=== PATIENT | female | born 2000 | race Caucasian/White ===

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

== ENCOUNTER 2020-02-10 22:42 | Emergency (ER) | payer OTHER ==
[~2020-02-10] VITALS: Ht 162.6 cm; Wt 55.3 kg
[2020-02-10 23:11] LABS: BASOPHILS ABSOLUTE AUTO 0.03 K/mm3 (0.00-0.23); BASOPHILS PERCENT AUTO 0 % (0-2); EOSINOPHILS PERCENT AUTO 2 % (0-6); Hematocrit 38.1 % (33.0-51.0); Hemoglobin 12.5 g/dL (11.5-16.0); IMMATURE GRAN ABSOLUTE AUTO 0.01 K/mm3 (0.00-0.10); IMMATURE GRAN PERCENT AUTO 0 % (0-1); LYMPHOCYTES ABSOLUTE AUTO 3.35 K/mm3 (0.84-5.20); LYMPHOCYTES PERCENT AUTO 39 % (21-46); MONOCYTES ABSOLUTE AUTO 0.55 K/mm3 (0.16-1.47); MONOCYTES PERCENT AUTO 7 % (4-13); Mean Corpuscular HGB 30.6 pg (26.0-34.0); Mean Corpuscular HGB Conc 32.8 g/dL (31.5-36.5); Mean Corpuscular Volume 93 fL (80-100); Mean Platelet Volume 8.8 fL (9.1-12.4); NEUTROPHILS ABSOLUTE AUTO 4.37 K/mm3 (1.96-9.15); NEUTROPHILS PERCENT AUTO 51 % (41-73); Platelet Count 248 K/mm3 (150-400); RDW Coefficient Variation 12.2 % (11.7-14.2); RDW Standard Deviation 42.2 fL (35.1-46.3); Red Blood Cell Count 4.08 M/mm3 (3.80-5.20); White Blood Cell Count 8.51 K/mm3 (4.00-11.30)
[2020-02-10 23:32] LABS: Alanine Aminotransfer (ALT/SGP 19 U/L (12-78); Albumin, Blood 3.9 g/dL (3.4-5.0); Albumin/Globulin Ratio 1.2 (0.8-1.8); Alk Phos 57 U/L (45-116); Anion Gap 4 mmol/L (6-16); Aspartate Aminotrans (AST/SGOT 13 U/L (12-37); Bilirubin, Total 0.3 mg/dL (0.1-1.0); Blood Urea Nitrogen 11 mg/dL (8-21); Bun/Creatinine Ratio 15.3 (12.0-20.0); CO2, Blood 28 mmol/L (21-32); Calcium, Blood 8.9 mg/dL (8.5-10.1); Chloride, Blood 109 mmol/L (98-108); Creatinine, Blood 0.72 mg/dL (0.40-1.00); Globulin, Blood 3.3 g/dL (2.2-4.0); Glomerular Filtration Rate >60 (60-); Glucose, Blood 88 mg/dL (70-99); Sodium, Blood 141 mmol/L (136-145); Total Protein, Blood 7.2 g/dL (6.4-8.2)
[2020-02-11 00:32] LABS: Source, Urine Clean Catch
[2020-02-11 00:34] LABS: Bilirubin, Urine Neg (Neg); Blood, Urine 5+ (Neg); Glucose Qualitative, Urine Neg (Neg); Ketones, Urine Neg (Neg); Leukocyte Esterase, Urine Neg (Neg); Nitrite, Urine Neg (Neg); Protein, Urine 2+ (Neg); Specific Gravity, Urine 1.025 (1.003-1.022); Urobilinogen, Urine NORM (Normal)
[2020-02-11 00:35] LABS: Appearance, Urine Clear (Clear); Color, Urine Yellow (P-Yellow)
[2020-02-11 00:40] LABS: Bacteria Many /hpf; Squamous Epithelial Cells Few /hpf (Few)
[2020-02-11 00:41] LABS: Mucus Light (0-Heavy)
== END 2020-02-11 01:34 | disposition home or self-care (01) ==
LOC: ER 22:42
PROVIDERS: Emergency Medicine
DX: R10.30 Lower abdominal pain, unspecified (principal); M54.5 Low back pain; R11.0 Nausea; R39.15 Urgency of urination; F32.9 Major depressive disorder, single episode, unspecified; F17.290 Nicotine dependence, other tobacco product, uncomplicated; Z79.3 Long term (current) use of hormonal contraceptives; Z88.0 Allergy status to penicillin; Z79.899 Other long term (current) drug therapy
CPT/HCPCS: 36415; 80053; 81001; 81025; 85025; 87086; 96374; 96375; 99284; J1885; J2405

== ENCOUNTER → 2020-03-14 | Outpatient (CLI) | payer OTHER ==
[~2020-03-14] MED LIST changes: +OLAN10A MM
== END | disposition home or self-care (01) ==
LOC: LAB SHORT 12:21 → LAB EV 12:21
DX: J02.9 Acute pharyngitis, unspecified (principal)
CPT/HCPCS: 87081

== ENCOUNTER 2020-05-20 11:54 | Emergency (ER) | payer OTHER ==
[~2020-05-20] VITALS: Ht 160 cm; Wt 59.0 kg
[~2020-05-20 11:54] MED LIST changes: -OLAN10A MM
[2020-05-20] MEDS ORDERED: OLAN10A MM ×2 (13:37→17:51)
== END 2020-05-20 14:34 | disposition home or self-care (01) ==
LOC: ER 11:54
DX: G47.00 Insomnia, unspecified (principal); F17.290 Nicotine dependence, other tobacco product, uncomplicated; Z88.0 Allergy status to penicillin; Z79.899 Other long term (current) drug therapy
CPT/HCPCS: 99283

== ENCOUNTER → 2021-01-14 | Outpatient (CLI) | payer OTHER ==
[~2021-01-14] MED LIST changes: +OLAN10A MM
[2021-01-14 09:45] LABS: BASOPHILS ABSOLUTE AUTO 0.03 K/mm3 (0.00-0.23); BASOPHILS PERCENT AUTO 0 % (0-2); EOSINOPHILS ABSOLUTE AUTO 0.07 K/mm3 (0.00-0.68); EOSINOPHILS PERCENT AUTO 1 % (0-6); Hemoglobin 13.4 g/dL (11.5-16.0); IMMATURE GRAN ABSOLUTE AUTO 0.02 K/mm3 (0.00-0.10); IMMATURE GRAN PERCENT AUTO 0 % (0-1); LYMPHOCYTES ABSOLUTE AUTO 1.95 K/mm3 (0.84-5.20); LYMPHOCYTES PERCENT AUTO 24 % (21-46); MONOCYTES ABSOLUTE AUTO 0.36 K/mm3 (0.16-1.47); MONOCYTES PERCENT AUTO 5 % (4-13); Mean Corpuscular HGB 31.7 pg (26.0-34.0); Mean Corpuscular HGB Conc 34.4 g/dL (31.5-36.5); Mean Corpuscular Volume 92 fL (80-100); NEUTROPHILS ABSOLUTE AUTO 5.65 K/mm3 (1.96-9.15); NEUTROPHILS PERCENT AUTO 70 % (41-73); Platelet Count 331 K/mm3 (150-400); RDW Coefficient Variation 12.8 % (11.7-14.2); RDW Standard Deviation 42.9 fL (35.1-46.3); Red Blood Cell Count 4.23 M/mm3 (3.80-5.20); White Blood Cell Count 8.08 K/mm3 (4.00-11.30)
== END ==
LOC: LAB SHORT 09:37 → LAB 09:37
PROVIDERS: Physician Assistant
DX: N94.6 Dysmenorrhea, unspecified (principal); Z88.1 Allergy status to other antibiotic agents
CPT/HCPCS: 84443; 85025

== ENCOUNTER → 2021-07-08 | Outpatient (CLI) | payer OTHER ==
[2021-07-08 13:19] LABS: Source, Urine Clean Catch
[2021-07-08 15:05] LABS: BASOPHILS ABSOLUTE AUTO 0.03 K/mm3 (0.00-0.23); BASOPHILS PERCENT AUTO 1 % (0-2); EOSINOPHILS ABSOLUTE AUTO 0.15 K/mm3 (0.00-0.68); EOSINOPHILS PERCENT AUTO 3 % (0-6); Hematocrit 40.8 % (33.0-51.0); Hemoglobin 13.8 g/dL (11.5-16.0); IMMATURE GRAN PERCENT AUTO 0 % (0-1); LYMPHOCYTES ABSOLUTE AUTO 2.27 K/mm3 (0.84-5.20); LYMPHOCYTES PERCENT AUTO 37 % (21-46); MONOCYTES ABSOLUTE AUTO 0.49 K/mm3 (0.16-1.47); MONOCYTES PERCENT AUTO 8 % (4-13); Mean Corpuscular HGB 31.7 pg (26.0-34.0); Mean Corpuscular HGB Conc 33.8 g/dL (31.5-36.5); Mean Corpuscular Volume 94 fL (80-100); Mean Platelet Volume 9.7 fL (9.1-12.4); NEUTROPHILS ABSOLUTE AUTO 3.16 K/mm3 (1.96-9.15); NEUTROPHILS PERCENT AUTO 52 % (41-73); Platelet Count 260 K/mm3 (150-400); RDW Coefficient Variation 12.2 % (11.7-14.2); RDW Standard Deviation 42.4 fL (35.1-46.3); Red Blood Cell Count 4.36 M/mm3 (3.80-5.20)
[2021-07-08 16:08] LABS: Appearance, Urine Clear (Clear); Bilirubin, Urine Neg (Neg); Blood, Urine Neg (Neg); Color, Urine Yellow (P-Yellow); Glucose Qualitative, Urine Neg (Neg); Ketones, Urine Neg (Neg); Leukocyte Esterase, Urine Neg (Neg); Nitrite, Urine Neg (Neg); Protein, Urine Neg (Neg); Urobilinogen, Urine NORM (Normal)
[2021-07-09 09:10] LABS: HBSAG SCREEN Negative (Negative); HIV AB/P24 AG SCREEN Non Reactive (Non Reactive)
== END | disposition home or self-care (01) ==
LOC: LAB 13:15 → LAB SHORT 13:15
PROVIDERS: Family Medicine
DX: Z34.91 Encounter for supervision of normal pregnancy, unspecified, first trimester (principal)
CPT/HCPCS: 80055; 81003; 84443; 87086; 87389

== ENCOUNTER 2021-07-25 11:19 | Emergency (ER) | payer OTHER ==
[~2021-07-25] VITALS: Ht 160 cm; Wt 54.9 kg
[2021-07-25 12:27] LABS: Source, Urine Clean Catch
[2021-07-25] MEDS ORDERED: Ondansetron Odt8 MG MM (12:33)
[2021-07-25 13:03] LABS: Beta HCG, Quantitative, Serum 29440 mIU/mL (0-3)
[2021-07-25 13:04] LABS: Anion Gap 7 mmol/L (6-16); Blood Urea Nitrogen 7 mg/dL (8-24); CO2, Blood 22 mmol/L (21-32); Calcium, Blood 9.3 mg/dL (8.5-10.1); Chloride, Blood 109 mmol/L (98-108); Creatinine, Blood 0.44 mg/dL (0.40-1.00); Glomerular Filtration Rate >60 (60-); Glucose, Blood 85 mg/dL (70-99); Potassium, Blood 3.8 mmol/L (3.5-5.5); Sodium, Blood 138 mmol/L (136-145)
[2021-07-25 13:08] LABS: Appearance, Urine Clear (Clear); Bilirubin, Urine Neg (Neg); Blood, Urine Neg (Neg); Color, Urine Yellow (P-Yellow); Glucose Qualitative, Urine Neg (Neg); Ketones, Urine 3+ (Neg); Leukocyte Esterase, Urine Neg (Neg); Nitrite, Urine Neg (Neg); Protein, Urine Neg (Neg); Specific Gravity, Urine 1.015 (1.003-1.022); Urobilinogen, Urine NORM (Normal); pH, Urine 6.5 (5.0-8.0)
== END 2021-07-25 13:37 | disposition home or self-care (01) ==
LOC: ER 11:19
PROVIDERS: Physician Assistant
DX: O21.9 Vomiting of pregnancy, unspecified (principal); Z3A.08 8 weeks gestation of pregnancy
CPT/HCPCS: 36415; 80048; 81003; 84702; 99283

== ENCOUNTER → 2021-08-08 | Outpatient (CLI) | payer OTHER ==
[~2021-08-08] MED LIST changes: +Ondansetron Odt8 MG MM
[2021-08-11 03:09] LABS: CHLAMYDIA TRACHOMATIS, NAA Negative (Negative)
== END | disposition home or self-care (01) ==
LOC: LAB SHORT 16:10
PROVIDERS: Family Medicine
DX: Z34.91 Encounter for supervision of normal pregnancy, unspecified, first trimester (principal)
CPT/HCPCS: 87491; 87591

== ENCOUNTER → 2021-12-16 | Outpatient (CLI) | payer OTHER ==
[2021-12-16 13:56] LABS: BASOPHILS ABSOLUTE AUTO 0.02 K/mm3 (0.00-0.23); BASOPHILS PERCENT AUTO 0 % (0-2); EOSINOPHILS ABSOLUTE AUTO 0.07 K/mm3 (0.00-0.68); EOSINOPHILS PERCENT AUTO 1 % (0-6); Hematocrit 33.4 % (33.0-51.0); Hemoglobin 11.3 g/dL (11.5-16.0); IMMATURE GRAN ABSOLUTE AUTO 0.07 K/mm3 (0.00-0.10); IMMATURE GRAN PERCENT AUTO 1 % (0-1); LYMPHOCYTES ABSOLUTE AUTO 2.33 K/mm3 (0.84-5.20); LYMPHOCYTES PERCENT AUTO 21 % (21-46); MONOCYTES ABSOLUTE AUTO 0.57 K/mm3 (0.16-1.47); MONOCYTES PERCENT AUTO 5 % (4-13); Mean Corpuscular HGB 32.3 pg (26.0-34.0); Mean Corpuscular HGB Conc 33.8 g/dL (31.5-36.5); Mean Corpuscular Volume 95 fL (80-100); Mean Platelet Volume 9.6 fL (9.1-12.4); NEUTROPHILS ABSOLUTE AUTO 8.15 K/mm3 (1.96-9.15); NEUTROPHILS PERCENT AUTO 73 % (41-73); Platelet Count 268 K/mm3 (150-400); RDW Coefficient Variation 12.3 % (11.7-14.2); RDW Standard Deviation 42.1 fL (35.1-46.3); White Blood Cell Count 11.21 K/mm3 (4.00-11.30)
== END ==
LOC: LAB SHORT 12:35
PROVIDERS: Family Medicine
DX: Z34.91 Encounter for supervision of normal pregnancy, unspecified, first trimester (principal); Z3A.00 Weeks of gestation of pregnancy not specified
CPT/HCPCS: 82950; 85025; 86850

== ENCOUNTER → 2022-02-13 | Outpatient (CLI) | payer OTHER | END | disposition home or self-care (01) | LOC: LAB SHORT 18:54 | DX: Z34.91 Encounter for supervision of normal pregnancy, unspecified, first trimester (principal) | CPT/HCPCS: 87081; 87150 ==

== ENCOUNTER 2022-03-07 16:25 | Inpatient (IN) | payer OTHER ==
[~2022-03-07] VITALS: Ht 157.5 cm; Wt 71.4 kg
[2022-03-07 17:23] LABS: BASOPHILS ABSOLUTE AUTO 0.04 K/mm3 (0.00-0.23); BASOPHILS PERCENT AUTO 0 % (0-2); EOSINOPHILS ABSOLUTE AUTO 0.06 K/mm3 (0.00-0.68); EOSINOPHILS PERCENT AUTO 0 % (0-6); Hematocrit 34.2 % (33.0-51.0); Hemoglobin 11.8 g/dL (11.5-16.0); IMMATURE GRAN ABSOLUTE AUTO 0.06 K/mm3 (0.00-0.10); IMMATURE GRAN PERCENT AUTO 0 % (0-1); LYMPHOCYTES ABSOLUTE AUTO 2.11 K/mm3 (0.84-5.20); LYMPHOCYTES PERCENT AUTO 15 % (21-46); MONOCYTES ABSOLUTE AUTO 0.91 K/mm3 (0.16-1.47); MONOCYTES PERCENT AUTO 6 % (4-13); Mean Corpuscular HGB 31.1 pg (26.0-34.0); Mean Corpuscular HGB Conc 34.5 g/dL (31.5-36.5); Mean Corpuscular Volume 90 fL (80-100); Mean Platelet Volume 10.1 fL (9.1-12.4); NEUTROPHILS ABSOLUTE AUTO 11.32 K/mm3 (1.96-9.15); NEUTROPHILS PERCENT AUTO 78 % (41-73); Platelet Count 386 K/mm3 (150-400); RDW Standard Deviation 42.4 fL (35.1-46.3)
[2022-03-08 05:27] LABS: BASOPHILS ABSOLUTE AUTO 0.03 K/mm3 (0.00-0.23); BASOPHILS PERCENT AUTO 0 % (0-2); EOSINOPHILS PERCENT AUTO 0 % (0-6); Hematocrit 31.5 % (33.0-51.0); Hemoglobin 10.6 g/dL (11.5-16.0); IMMATURE GRAN ABSOLUTE AUTO 0.11 K/mm3 (0.00-0.10); IMMATURE GRAN PERCENT AUTO 1 % (0-1); LYMPHOCYTES ABSOLUTE AUTO 1.44 K/mm3 (0.84-5.20); LYMPHOCYTES PERCENT AUTO 6 % (21-46); MONOCYTES ABSOLUTE AUTO 1.45 K/mm3 (0.16-1.47); MONOCYTES PERCENT AUTO 6 % (4-13); Mean Corpuscular HGB 30.6 pg (26.0-34.0); Mean Corpuscular HGB Conc 33.7 g/dL (31.5-36.5); Mean Corpuscular Volume 91 fL (80-100); Mean Platelet Volume 9.9 fL (9.1-12.4); NEUTROPHILS PERCENT AUTO 87 % (41-73); Platelet Count 370 K/mm3 (150-400); RDW Coefficient Variation 12.9 % (11.7-14.2); RDW Standard Deviation 42.4 fL (35.1-46.3); Red Blood Cell Count 3.46 M/mm3 (3.80-5.20); White Blood Cell Count 22.73 K/mm3 (4.00-11.30)
[2022-03-09] MEDS ORDERED: PRENATAL TABLE1 EAC2 PO (08:44)
[2022-03-09] MEDS ORDERED: IBUP800 PO (08:44)
--- NOTE | 2022-03-09 09:32 | NUR ---
DISCHARGE DISCHARGE HOME STABLE WITH BABY. CARING FOR SELF AND BABY INDEPENDANTLY. VERBALIZES UNDERSTANDING OF DC INSTRUCTIONS AND FOLLOW UP APPOINTMENTS. NO QUESTIONS OR CONCERNS. VSS. LOCHIA SCANT.
== END 2022-03-09 09:50 | disposition home or self-care (01) | DRG 807 ==
LOC: OBS 16:25 → BC 16:26 → OBS 16:58 → BC 17:02
PROVIDERS: Family Medicine; ADMIT Family Medicine
PROC: 10E0XZZ Delivery of Products of Conception, External Approach (ICD-10-PCS; principal; 2022-03-07)
PROC: 0KQM0ZZ Repair Perineum Muscle, Open Approach (ICD-10-PCS; 2022-03-07)
PROC: 10907ZC Drainage of Amniotic Fluid, Therapeutic from Products of Conception, Via Natural or Artificial Opening (ICD-10-PCS; 2022-03-07)
DX: O99.72 Diseases of the skin and subcutaneous tissue complicating childbirth (principal); Z37.0 Single live birth; L29.8 Other pruritus; O99.324 Drug use complicating childbirth; O70.1 Second degree perineal laceration during delivery; F12.10 Cannabis abuse, uncomplicated; O43.123 Velamentous insertion of umbilical cord, third trimester; Z3A.39 39 weeks gestation of pregnancy; Z98.890 Other specified postprocedural states; Z88.0 Allergy status to penicillin; Z79.899 Other long term (current) drug therapy
CPT/HCPCS: 36415; 59025; 81003; 85025; 86850; 86870; 86900; 86901; A9270; J1885; J2405; J2590; J7120

== ENCOUNTER 2022-04-14 18:19 | Emergency (ER) | payer OTHER ==
[~2022-04-14] VITALS: Ht 160 cm; Wt 65.8 kg
[2022-04-14] MEDS ORDERED: ONDA4ODT MM (22:07)
== END 2022-04-14 22:05 | disposition home or self-care (01) ==
LOC: ER 18:19
DX: K85.90 Acute pancreatitis without necrosis or infection, unspecified (principal); Z88.0 Allergy status to penicillin; Z79.899 Other long term (current) drug therapy
CPT/HCPCS: 74177; Q9967

== ENCOUNTER → 2022-04-14 | Outpatient (CLI) | payer OTHER ==
[~2022-04-14] MED LIST changes: +IBUP800 PO
[2022-04-14 16:23] LABS: BASOPHILS ABSOLUTE AUTO 0.02 K/mm3 (0.00-0.23); BASOPHILS PERCENT AUTO 0 % (0-2); EOSINOPHILS ABSOLUTE AUTO 0.01 K/mm3 (0.00-0.68); EOSINOPHILS PERCENT AUTO 0 % (0-6); Hematocrit 39.9 % (33.0-51.0); Hemoglobin 13.7 g/dL (11.5-16.0); IMMATURE GRAN ABSOLUTE AUTO 0.03 K/mm3 (0.00-0.10); IMMATURE GRAN PERCENT AUTO 0 % (0-1); LYMPHOCYTES ABSOLUTE AUTO 1.06 K/mm3 (0.84-5.20); LYMPHOCYTES PERCENT AUTO 9 % (21-46); MONOCYTES ABSOLUTE AUTO 0.62 K/mm3 (0.16-1.47); MONOCYTES PERCENT AUTO 5 % (4-13); Mean Corpuscular HGB 30.6 pg (26.0-34.0); Mean Corpuscular HGB Conc 34.3 g/dL (31.5-36.5); Mean Corpuscular Volume 89 fL (80-100); Mean Platelet Volume 9.2 fL (9.1-12.4); NEUTROPHILS ABSOLUTE AUTO 10.73 K/mm3 (1.96-9.15); NEUTROPHILS PERCENT AUTO 86 % (41-73); Platelet Count 312 K/mm3 (150-400); RDW Coefficient Variation 13.4 % (11.7-14.2); RDW Standard Deviation 43.8 fL (35.1-46.3); Red Blood Cell Count 4.47 M/mm3 (3.80-5.20); White Blood Cell Count 12.47 K/mm3 (4.00-11.30)
[2022-04-14 16:32] LABS: Albumin, Blood 4.1 g/dL (3.4-5.0); Albumin/Globulin Ratio 1.1 (0.8-1.8); Bilirubin, Total 0.4 mg/dL (0.1-1.0); Bun/Creatinine Ratio 21.9 (12.0-20.0); Creatinine, Blood 0.64 mg/dL (0.40-1.00); Globulin, Blood 3.9 g/dL (2.2-4.0); Potassium, Blood 3.8 mmol/L (3.5-5.5)
== END | disposition home or self-care (01) ==
LOC: LAB SHORT 16:19 → LAB 16:19
PROVIDERS: Physician Assistant Surgical
DX: R11.2 Nausea with vomiting, unspecified (principal)
CPT/HCPCS: 80053; 83690; 85025

== ENCOUNTER 2022-08-01 15:51 | Inpatient (IN) | payer OTHER ==
[~2022-08-01] VITALS: Ht 160 cm; Wt 57.6 kg
[2022-08-01 16:37] LABS: BASOPHILS ABSOLUTE AUTO 0.03 K/mm3 (0.00-0.23); BASOPHILS PERCENT AUTO 0 % (0-2); EOSINOPHILS ABSOLUTE AUTO 0.08 K/mm3 (0.00-0.68); EOSINOPHILS PERCENT AUTO 1 % (0-6); Hematocrit 40.2 % (33.0-51.0); Hemoglobin 13.4 g/dL (11.5-16.0); IMMATURE GRAN ABSOLUTE AUTO 0.02 K/mm3 (0.00-0.10); IMMATURE GRAN PERCENT AUTO 0 % (0-1); LYMPHOCYTES ABSOLUTE AUTO 1.87 K/mm3 (0.84-5.20); LYMPHOCYTES PERCENT AUTO 19 % (21-46); MONOCYTES ABSOLUTE AUTO 0.58 K/mm3 (0.16-1.47); MONOCYTES PERCENT AUTO 6 % (4-13); Mean Corpuscular HGB Conc 33.3 g/dL (31.5-36.5); Mean Corpuscular Volume 90 fL (80-100); Mean Platelet Volume 9.1 fL (9.1-12.4); NEUTROPHILS ABSOLUTE AUTO 7.32 K/mm3 (1.96-9.15); NEUTROPHILS PERCENT AUTO 74 % (41-73); Platelet Count 318 K/mm3 (150-400); RDW Coefficient Variation 13.4 % (11.7-14.2); RDW Standard Deviation 44.2 fL (35.1-46.3); Red Blood Cell Count 4.47 M/mm3 (3.80-5.20)
[2022-08-01 17:08] LABS: Albumin, Blood 3.8 g/dL (3.4-5.0); Albumin/Globulin Ratio 1.1 (0.8-1.8); Bilirubin, Total 0.5 mg/dL (0.1-1.0); Bun/Creatinine Ratio 28.2 (12.0-20.0); Calcium, Blood 9.3 mg/dL (8.5-10.1); Creatinine, Blood 0.67 mg/dL (0.40-1.00); Globulin, Blood 3.4 g/dL (2.2-4.0); Potassium, Blood 4.1 mmol/L (3.5-5.5); Total Protein, Blood 7.2 g/dL (6.4-8.2)
[2022-08-01 19:36] LABS: CHOL/HDL RATIO 3.6; Cholesterol 153 mg/dL (50-200); HDL Cholesterol 43 mg/dL (>39); LDL/HDL RATIO 2.3; Low Density Lipoprotein Chol 100 mg/dL (0-110); Triglycerides 52 mg/dL (30-140); Very Low Density Lipoprot Chol 10 mg/dL (6-28)
--- NOTE | 2022-08-01 23:57 | NUR ---
ARRIVAL PT ARRIVED TO FLOOR IN NO DISTRESS, DESCRIBED EPIGASTRIC PAIN "DISAPPEARED" AT THIS TIME. PT REPORTS SHE WILL ASK FOR PAIN MEDS IF SHE NEEDS THEM. REPORTS NAUSEA WITH PO INTAKE, NO NAUSEA AT THIS TIME, PT HAS NOT BEEN ABLE TO KEEP FOOD DOWN SINCE SUNDAY. PT TO BE NPO AT 0000, PLAN FOR VICTORINA IN AM. BED IN LOW, AT BEDSIDE, CALL LIGHT IN REACH
[2022-08-02] VITALS (16 sets, daily range): BP systolic 100–142; BP diastolic 60–91
--- NOTE | 2022-08-02 00:07 | NUR ---
HR PT NOTED TO HAVE A LOW HR, COUNTED AT 44 RADIALLY. PT REPORTS THIS IS BASELINE FOR HER. PT REMAINS AYMPTOMATIC AND EDUCATED ON CALLING IF SHE STARTS FEELING LIGHTHEADED, FLUSH, DIZZY, OR WEAK. REMAINS AT BEDSIDE, CALL IGHT IN REACH
--- NOTE | 2022-08-02 05:09 | NUR ---
SHIFT SUMMARY VSS. SEE PREVIOUS NOTE FOR UPDATE ON HR. PT HAS BEEN NPO SINCE ARRIVING TO THE FLOOR, IV FLUIDS INFUSING. ONE UNMEASUREED VOID NOTED, PT REPORTS SHE HAS NOT BEEN ABLE TO KEEP FOOD OR FLUID DOWN SINCE SUNDAY. REPORTS SHE FEELS "DEHYDRATED". PT HAS NOT REQUIRED ANY PAIN OR NAUSEA MEDICATION. NO N/V NOTED. SURGICAL WIPEDOWN COMPLETE. NO ACUTE EVENTS NOTEDSINCE ARRIVAL. PLAN FOR PT TO [facility] TODAY. THE PATIENT IS CURRENTLY RESTING, IN NO DISTRESS, CALL LIGHT IN REACH. AND AT BEDSIDE
[2022-08-02 08:46] LABS: BASOPHILS ABSOLUTE AUTO 0.04 K/mm3 (0.00-0.23); BASOPHILS PERCENT AUTO 1 % (0-2); EOSINOPHILS ABSOLUTE AUTO 0.22 K/mm3 (0.00-0.68); EOSINOPHILS PERCENT AUTO 4 % (0-6); Hematocrit 37.3 % (33.0-51.0); Hemoglobin 12.5 g/dL (11.5-16.0); IMMATURE GRAN ABSOLUTE AUTO 0.02 K/mm3 (0.00-0.10); IMMATURE GRAN PERCENT AUTO 0 % (0-1); LYMPHOCYTES ABSOLUTE AUTO 1.98 K/mm3 (0.84-5.20); LYMPHOCYTES PERCENT AUTO 36 % (21-46); MONOCYTES ABSOLUTE AUTO 0.28 K/mm3 (0.16-1.47); MONOCYTES PERCENT AUTO 5 % (4-13); Mean Corpuscular HGB 30.3 pg (26.0-34.0); Mean Corpuscular HGB Conc 33.5 g/dL (31.5-36.5); Mean Corpuscular Volume 91 fL (80-100); Mean Platelet Volume 9.2 fL (9.1-12.4); NEUTROPHILS ABSOLUTE AUTO 3.01 K/mm3 (1.96-9.15); NEUTROPHILS PERCENT AUTO 54 % (41-73); Platelet Count 276 K/mm3 (150-400); RDW Coefficient Variation 13.4 % (11.7-14.2); RDW Standard Deviation 44.7 fL (35.1-46.3); Red Blood Cell Count 4.12 M/mm3 (3.80-5.20); White Blood Cell Count 5.55 K/mm3 (4.00-11.30)
[2022-08-02 08:59] LABS: Albumin, Blood 3.5 g/dL (3.4-5.0); Bilirubin, Total 0.5 mg/dL (0.1-1.0); Bun/Creatinine Ratio 24.6 (12.0-20.0); Calcium, Blood 9.1 mg/dL (8.5-10.1); Creatinine, Blood 0.57 mg/dL (0.40-1.00); Globulin, Blood 3.4 g/dL (2.2-4.0); Total Protein, Blood 6.9 g/dL (6.4-8.2)
--- NOTE | 2022-08-02 15:29 | NUR ---
PATIENT IS GOING BACK TO THE OR.
--- NOTE | 2022-08-02 15:45 | NUR ---
History, Chart, Medications and Allergies reviewed before start of procedure. Lungs clear T/O to Auscultation. Patient confirms NPO status and agrees with scheduled surgery. Pre-Op teaching done. Pt verbalizes understanding. Pt is post and breasting feeding her daughter. Denies pain and nausea at this times.
--- NOTE | 2022-08-02 16:06 | NUR ---
REPORT TO MARITZA BLOOM TO ASSUME CARE OF PATIENT
[2022-08-02] MEDS ORDERED: Norco 5-325 Ta1 EACH PO (18:50)
--- NOTE | 2022-08-02 19:15 | NUR ---
PATIENT CAME BACK AT 1900 FROM PACU TODAY. POD 0 LAP VICTORINA PATIENT IS DROWSY BUT IS EASILY WOKEN UP WITH VERBAL STIMULI. PATIENT DENIES PAIN AT THIS TIME BUT REPORTS BEING NAUSEOUS. AWAITING FOR DR. QUIROGA'S PRN ANTIN[place]SEA MEDS TO BE VERIFIED BY PHARMACY TO GIVE TO PATIENT. SHE HAS 4 LAP SITES WITH STERI STRIPS BUT TWO OF THEM WITH GAUZE AND TEGADERM OVER THEM BUT ALL ARE C/D/I. BOWEL TONES ARE HYPOACTIVE AND TENDER TO PALPATATE. SHE IS TOLERATING SMALL AMOUNTS OF PO INTAKE. PATIENT IS LAYING IN BED WITH CALL LIGHT IN REACH. PATIENTS MOTHER IS AT BEDSIDE. SIGNIFICANT OTHER WAS GIVEN THE HARD PERSCRIPTION AND IS TAKING IT TO A PHARMACY AT THIS TIME.
[2022-08-03 03:12] VITALS: BP 120/74
--- NOTE | 2022-08-03 06:01 | NUR ---
SHIFT SUMMARY PT POD 0 LAP VICTORINA. PT ARRIVED BACK FROM OR CLOSE TO SHIFT CHANGE WITH DISCHARGE ORDERS FOR 08/02 OR 08/03 THIS AM. PT DID NOT FEEL COMFORTABLE DISCHARGING LAST NIGHT AND WANTED TO STAY ANOTHER NIGHT. PT ON OHP AND WAS UNABLE TO FUFILL HER PRESCIPTION FOR PAIN MEDICATION THE PHARMACIES THAT DID ACCEPT OHP WERE CLOSED. PT WANTED TO STAY FOR PAIN MANAGEMENT AND NAUSEA CONTROL. PT DID HAVE SOME NAUSEA OVERNIGHT WITH ONE EPISODE OF EMESIS. PT TOLERATING FLUIDS BUT APPETITE IS POOR, MEDICATED WITH ZOFRAN. PT VOIDED AROUND 2200. PT AND WAS HESITANT TO TAKE STRONGER MEDICATIONS FOR PAIN (NORCO OR TORADOL). HOWEVER, AFTER SPEAKING WITH PHARMACY REGARDING TORADOL AND NORCO WITH PT FELT MORE COMFORTABLE WITH TAKING THEM. PHARMACIST ARIADNE STATES THAT BOTH MEDICATIONS CLEAR FROM SYSTEM IN 6-8 HOURS AND VERY LITTLE IS PASSED THROUGH BREASTMILK, THAT SHE COULD BREASTFEED IF SHE FELT COMFORTABLE DOING SO OR SHE COULD USE MILK THAT SHE HAD ALREADY PUMPED. PT EXPRESSES UNDERSTANDING AND PLANS TO USE MILK THAT SHE HAS ALREADY PUMPED AND STORED WHILE ON PAIN MEDICATION. LAP SITES TO ABD C/D/I AND PT PASSING GAS. POST OP VITALS STABLE. BED IN LOWEST POSITION, CALL LIGHT WITHIN REACH.
[2022-08-03 07:10] VITALS: BP 115/61
--- NOTE | 2022-08-03 09:10 | NUR ---
0813 DISCHARGED TO HOME WITH SPOUSE AND BABY. PT REPORTS PAIN AND NAUSEA ARE ADEQUATELY CONTROLLED. [place] SIPS OF LIQUIDS, STATES SHE JUST DOES NOT WANT TO TRY MORE FOOD AT THIS TIME. ABD DRESSINGS DRY AND INTACT. PT IN AGREEMENT WITH PLAN TO DISCHARGE
== END 2022-08-03 08:44 | disposition home or self-care (01) | DRG 419 ==
LOC: ER 15:51 → SURS 23:10
PROVIDERS: Family Medicine; Physician Assistant; Surgery; ADMIT Surgery
PROC: BF131ZZ Fluoroscopy of Gallbladder and Bile Ducts using Low Osmolar Contrast (ICD-10-PCS; 2022-08-02)
PROC: 0FT44ZZ Resection of Gallbladder, Percutaneous Endoscopic Approach (ICD-10-PCS; principal; 2022-08-02 14:00)
DX: K85.10 Biliary acute pancreatitis without necrosis or infection (principal); F12.10 Cannabis abuse, uncomplicated; Z79.899 Other long term (current) drug therapy; Z87.891 Personal history of nicotine dependence; Z98.890 Other specified postprocedural states; Z88.0 Allergy status to penicillin
CPT/HCPCS: 36415; 74300; 76705; 80053; 80061; 83690; 84703; 85025; 88304; 96360; 96361; 99285-25; A9270; J1790; J1885; J1956; J2250; J2405; J2704; J2765; J3010; J7120

== ENCOUNTER → 2023-10-26 | Outpatient (CLI) | payer OTHER ==
[~2023-10-26] MED LIST changes: +Norco 5-325 Ta1 EACH PO
[2023-10-26 11:31] LABS: Source, Urine Voided
[2023-10-26 12:45] LABS: Appearance, Urine Clear (Clear); Bilirubin, Urine Neg (Neg); Blood, Urine Neg (Neg); Color, Urine Yellow (P-Yellow); Glucose Qualitative, Urine Neg (Neg); Ketones, Urine Neg (Neg); Leukocyte Esterase, Urine Neg (Neg); Nitrite, Urine Neg (Neg); Protein, Urine 1+ (Neg); Urobilinogen, Urine NORM (Normal)
[2023-10-26 17:05] LABS: BASOPHILS ABSOLUTE AUTO 0.02 K/mm3 (0.00-0.23); BASOPHILS PERCENT AUTO 0 % (0-2); EOSINOPHILS ABSOLUTE AUTO 0.07 K/mm3 (0.00-0.68); EOSINOPHILS PERCENT AUTO 1 % (0-6); Hematocrit 37.7 % (33.0-51.0); Hemoglobin 12.8 g/dL (11.5-16.0); IMMATURE GRAN ABSOLUTE AUTO 0.01 K/mm3 (0.00-0.10); IMMATURE GRAN PERCENT AUTO 0 % (0-1); LYMPHOCYTES ABSOLUTE AUTO 1.96 K/mm3 (0.84-5.20); LYMPHOCYTES PERCENT AUTO 30 % (21-46); MONOCYTES ABSOLUTE AUTO 0.38 K/mm3 (0.16-1.47); MONOCYTES PERCENT AUTO 6 % (4-13); Mean Corpuscular HGB 31.4 pg (26.0-34.0); Mean Corpuscular Volume 92 fL (80-100); Mean Platelet Volume 9.4 fL (9.1-12.4); NEUTROPHILS ABSOLUTE AUTO 4.02 K/mm3 (1.96-9.15); NEUTROPHILS PERCENT AUTO 62 % (41-73); Platelet Count 280 K/mm3 (150-400); RDW Coefficient Variation 12.7 % (11.7-14.2); RDW Standard Deviation 43.1 fL (35.1-46.3); Red Blood Cell Count 4.08 M/mm3 (3.80-5.20); White Blood Cell Count 6.46 K/mm3 (4.00-11.30)
[2023-10-28 07:48] LABS: HEPATITIS B SURFACE ANTIGEN Negative (Negative)
[2023-10-28 08:50] LABS: HIV 1,2 COMBO ANTIGEN/ANTIBODY Negative (Negative)
[2023-10-28 09:21] LABS: HEPATITIS C AB CIA INTERP Negative (Negative); HEPATITIS C ANTIBODY CIA INDEX 0.06 IV
== END ==
LOC: LAB SHORT 11:29 → LAB 11:29
PROVIDERS: Family Medicine
DX: Z34.91 Encounter for supervision of normal pregnancy, unspecified, first trimester (principal)
CPT/HCPCS: 84443; 86803; 87086; 87340; 87389

== ENCOUNTER → 2023-11-08 | Outpatient (CLI) | payer OTHER ==
[2023-11-10 14:41] LABS: APTIMA MEDIA TYPE Urine; C. TRACHOMATIS BY TMA Negative (Negative); N. GONORRHOEAE BY TMA Negative (Negative); SPECIMEN SOURCE Urine
== END ==
LOC: LAB SHORT 14:00 → LAB 14:00
PROVIDERS: Family Medicine
DX: Z34.91 Encounter for supervision of normal pregnancy, unspecified, first trimester (principal)
CPT/HCPCS: 87491; 87591

== ENCOUNTER → 2023-12-07 | Outpatient (CLI) | payer OTHER ==
[2023-12-07 19:39] LABS: Bacterial Vaginosis PCR Negative (NEGATIVE); Candida glabrata-krusei, PCR NOT DETECTED (NOT DETECT)
[2023-12-07 20:18] LABS: Candida Group, PCR DETECTED (NOT DETECT)
== END ==
LOC: LAB 16:20 → LAB SHORT 16:20
PROVIDERS: Registered Nurse Community Health
DX: N89.8 Other specified noninflammatory disorders of vagina (principal)
CPT/HCPCS: 87481; 87661; 87801

== ENCOUNTER → 2023-12-31 | Outpatient (CLI) | payer OTHER ==
[2023-12-31 16:20] LABS: Bacterial Vaginosis PCR Negative (NEGATIVE); Candida glabrata-krusei, PCR NOT DETECTED (NOT DETECT)
[2023-12-31 16:25] LABS: Candida Group, PCR DETECTED (NOT DETECT)
== END | disposition home or self-care (01) ==
LOC: LAB 10:30 → LAB SHORT 10:30
PROVIDERS: Family Medicine
DX: N89.8 Other specified noninflammatory disorders of vagina (principal)
CPT/HCPCS: 87481; 87661; 87801

== ENCOUNTER → 2024-03-13 | Outpatient (CLI) | payer OTHER ==
[2024-03-13 14:56] LABS: BASOPHILS ABSOLUTE AUTO 0.02 K/mm3 (0.00-0.23); BASOPHILS PERCENT AUTO 0 % (0-2); EOSINOPHILS ABSOLUTE AUTO 0.13 K/mm3 (0.00-0.68); EOSINOPHILS PERCENT AUTO 1 % (0-6); Hematocrit 34.9 % (33.0-51.0); Hemoglobin 11.9 g/dL (11.5-16.0); IMMATURE GRAN ABSOLUTE AUTO 0.04 K/mm3 (0.00-0.10); IMMATURE GRAN PERCENT AUTO 0 % (0-1); LYMPHOCYTES ABSOLUTE AUTO 1.84 K/mm3 (0.84-5.20); LYMPHOCYTES PERCENT AUTO 18 % (21-46); MONOCYTES ABSOLUTE AUTO 0.44 K/mm3 (0.16-1.47); MONOCYTES PERCENT AUTO 4 % (4-13); Mean Corpuscular HGB 32.7 pg (26.0-34.0); Mean Corpuscular HGB Conc 34.1 g/dL (31.5-36.5); Mean Corpuscular Volume 96 fL (80-100); Mean Platelet Volume 9.9 fL (9.1-12.4); NEUTROPHILS ABSOLUTE AUTO 7.64 K/mm3 (1.96-9.15); NEUTROPHILS PERCENT AUTO 76 % (41-73); Platelet Count 251 K/mm3 (150-400); RDW Coefficient Variation 12.7 % (11.7-14.2); RDW Standard Deviation 44.2 fL (35.1-46.3); Red Blood Cell Count 3.64 M/mm3 (3.80-5.20); White Blood Cell Count 10.11 K/mm3 (4.00-11.30)
== END ==
LOC: LAB SHORT 13:05 → LAB 13:05
PROVIDERS: Family Medicine
DX: Z34.92 Encounter for supervision of normal pregnancy, unspecified, second trimester (principal); Z67.11 Type A blood, Rh negative
CPT/HCPCS: 82950; 85025; 86850

== ENCOUNTER → 2024-05-08 | Outpatient (CLI) | payer OTHER | LOC: LAB 15:18 → LAB SHORT 15:18 | DX: Z34.93 Encounter for supervision of normal pregnancy, unspecified, third trimester (principal) | CPT/HCPCS: 87081; 87150 ==

== ENCOUNTER 2024-05-31 09:02 | Inpatient (IN) | payer OTHER ==
[~2024-05-31] VITALS: Ht 160 cm; Wt 73.0 kg
[2024-05-31] VITALS (13 sets, daily range): BP systolic 107–225; BP diastolic 69–113
[2024-05-31] MEDS ORDERED: Oxytocin 10 Unit / ML Vial IM PRN (09:30)
[2024-05-31] MEDS ORDERED: Misoprostol 200 MCG Tab BC PRN (09:30)
[2024-05-31] MEDS ORDERED: ePHEDrine Sulfate 50 MG/ML 1ML Injection XX PRN (09:30)
[2024-05-31] MEDS ORDERED: Lactated Ringer's 1,000 ML IV SCH ×3 (09:30→16:45)
[2024-05-31] MEDS ORDERED: Ondansetron HCl 2 MG / ML 2ML Vial IV PRN (09:30)
[2024-05-31] MEDS ORDERED: OXYTOCIN/RINGER'S LACTATE 500 ML IV PRN (09:30)
[2024-05-31] MEDS ORDERED: Acetaminophen 500 MG Tab PO PRN (09:30)
[2024-05-31] MEDS ORDERED: Lactated Ringer's 1,000 ML IV PRN (09:30)
[2024-05-31] MEDS ORDERED: Calcium Carbonate 500 MG Tab Chew PO SCH (09:30)
[2024-05-31] MEDS ORDERED: Misoprostol 200 MCG Tab PR PRN (09:30)
[2024-05-31] MEDS ORDERED: Methylergonovine Maleate 0.2MG / ML 1ML Amp IM PRN (09:30)
[2024-05-31] MEDS ORDERED: Tranexamic Acid 100 ML IV SCH (09:30)
[2024-05-31] MEDS ORDERED: FentaNYL 2mcg/ml-Bup 0.1% Epd 250 ML EPI PRN (09:30)
[2024-05-31] MEDS ORDERED: Carboprost Tromethamine 250 MCG/ML 1ML Amp IM PRN (09:30)
[2024-05-31] MEDS ORDERED: PRENATAL TABLE1 EAC2 PO (09:49)
[2024-05-31] MEDS ORDERED: PANT40 PO (09:50)
[2024-05-31 09:57] LABS: BASOPHILS ABSOLUTE AUTO 0.02 K/mm3 (0.00-0.23); BASOPHILS PERCENT AUTO 0 % (0-2); EOSINOPHILS ABSOLUTE AUTO 0.07 K/mm3 (0.00-0.68); EOSINOPHILS PERCENT AUTO 1 % (0-6); Hematocrit 35.6 % (33.0-51.0); Hemoglobin 12.3 g/dL (11.5-16.0); IMMATURE GRAN ABSOLUTE AUTO 0.06 K/mm3 (0.00-0.10); IMMATURE GRAN PERCENT AUTO 1 % (0-1); LYMPHOCYTES ABSOLUTE AUTO 1.72 K/mm3 (0.84-5.20); LYMPHOCYTES PERCENT AUTO 15 % (21-46); MONOCYTES ABSOLUTE AUTO 0.56 K/mm3 (0.16-1.47); MONOCYTES PERCENT AUTO 5 % (4-13); Mean Corpuscular HGB 31.9 pg (26.0-34.0); Mean Corpuscular HGB Conc 34.6 g/dL (31.5-36.5); Mean Corpuscular Volume 93 fL (80-100); NEUTROPHILS ABSOLUTE AUTO 9.25 K/mm3 (1.96-9.15); NEUTROPHILS PERCENT AUTO 79 % (41-73); Platelet Count 210 K/mm3 (150-400); RDW Coefficient Variation 12.7 % (11.7-14.2); RDW Standard Deviation 42.5 fL (35.1-46.3); Red Blood Cell Count 3.85 M/mm3 (3.80-5.20); White Blood Cell Count 11.68 K/mm3 (4.00-11.30)
[2024-05-31] MEDS ORDERED: Misoprostol 200 MCG Tab PO ONE (13:37)
[2024-05-31] MEDS ORDERED: Tranexamic Acid 100 ML IV ONE (15:02)
[2024-05-31] MEDS ORDERED: FentaNYL Citrate 50 MCG/ML 2 ML Injection ONE (15:08)
[2024-05-31] MEDS ORDERED: FentaNYL Citrate 50 MCG/ML 2 ML Injection IV PRN (15:15)
[2024-05-31] MEDS ORDERED: CeFAZolin Sodium 2,000 MG in NS 100 ML IV ONE (15:35)
[2024-05-31] MEDS ORDERED: Ketorolac Tromethamine 30mg Vial IV PRN (16:45)
[2024-05-31] MEDS ORDERED: Witch Hazel/Glycerin PADS TOP PRN (16:45)
[2024-05-31] MEDS ORDERED: Docusate Sodium 100 MG Cap PO PRN (16:50)
[2024-05-31] MEDS ORDERED: Lanolin Cream TOP PRN (16:50)
[2024-05-31] MEDS ORDERED: Rho(D) Immune Globulin 300 MCG / SYR IM ONE (16:50)
[2024-05-31] MEDS ORDERED: FLU VACC TS2024-25(6MOS UP)/PF 45 MCG/0.5 ML SYRINGE IM PRN (16:50)
[2024-05-31] MEDS ORDERED: Acetaminophen 325 MG TABLET PO PRN (16:50)
[2024-05-31] MEDS ORDERED: OxyCODONE 5 mg/Acetamin 325 mg TABLET PO PRN (16:50)
[2024-05-31] MEDS ORDERED: Benzocaine Topical Anesthetic Spray 60GM TOP PRN (16:50)
[2024-06-01] MEDS ORDERED: CeFAZolin Sodium 2,000 MG in NS 100 ML IV ONE (00:30)
[2024-06-01 00:37] VITALS: BP 113/71
[2024-06-01 04:26] VITALS: BP 124/65
[2024-06-01 05:52] LABS: BASOPHILS ABSOLUTE AUTO 0.03 K/mm3 (0.00-0.23); BASOPHILS PERCENT AUTO 0 % (0-2); EOSINOPHILS ABSOLUTE AUTO 0.05 K/mm3 (0.00-0.68); EOSINOPHILS PERCENT AUTO 0 % (0-6); Hemoglobin 9.4 g/dL (11.5-16.0); IMMATURE GRAN ABSOLUTE AUTO 0.07 K/mm3 (0.00-0.10); IMMATURE GRAN PERCENT AUTO 1 % (0-1); LYMPHOCYTES ABSOLUTE AUTO 2.44 K/mm3 (0.84-5.20); LYMPHOCYTES PERCENT AUTO 17 % (21-46); MONOCYTES ABSOLUTE AUTO 0.91 K/mm3 (0.16-1.47); MONOCYTES PERCENT AUTO 6 % (4-13); Mean Corpuscular HGB 32.2 pg (26.0-34.0); Mean Corpuscular HGB Conc 34.8 g/dL (31.5-36.5); Mean Corpuscular Volume 93 fL (80-100); NEUTROPHILS ABSOLUTE AUTO 10.62 K/mm3 (1.96-9.15); NEUTROPHILS PERCENT AUTO 75 % (41-73); Platelet Count 221 K/mm3 (150-400); RDW Coefficient Variation 12.9 % (11.7-14.2); RDW Standard Deviation 42.5 fL (35.1-46.3); Red Blood Cell Count 2.92 M/mm3 (3.80-5.20); White Blood Cell Count 14.12 K/mm3 (4.00-11.30)
[2024-06-01 08:23] VITALS: BP 128/86
[2024-06-01] MEDS ORDERED: Prenatal Vit/FE Fumarate/FA 1 Tab PO SCH (09:00)
[2024-06-01] MEDS ORDERED: Ibuprofen 400 MG Tab PO PRN (12:00)
[2024-06-01 12:08] VITALS: BP 138/88
== END 2024-06-01 15:00 | disposition home or self-care (01) | DRG 807 ==
LOC: BC 09:02 → OBS 09:02 → BC 09:31
PROVIDERS: ADMIT Family Medicine
PROC: 10E0XZZ Delivery of Products of Conception, External Approach (ICD-10-PCS; principal; 2024-05-31)
PROC: 0HQ9XZZ Repair Perineum Skin, External Approach (ICD-10-PCS; 2024-05-31)
PROC: 10907ZC Drainage of Amniotic Fluid, Therapeutic from Products of Conception, Via Natural or Artificial Opening (ICD-10-PCS; 2024-05-31)
PROC: 3E0234Z Introduction of Serum, Toxoid and Vaccine into Muscle, Percutaneous Approach (ICD-10-PCS; 2024-05-31)
DX: O26.893 Other specified pregnancy related conditions, third trimester (principal); Z37.0 Single live birth; O70.0 First degree perineal laceration during delivery; Z3A.39 39 weeks gestation of pregnancy; Z67.11 Type A blood, Rh negative
CPT/HCPCS: 36415; 85025; 86850; 86870; 86900; 86901; A9270; J0690; J1885; J2405; J3010